=== PATIENT | male | born 1960 | race Caucasian/White ===

== ENCOUNTER 2022-12-16 08:47 | Emergency (ER) | payer BC ==
--- NOTE | 2022-12-16 09:31 | ED ---
Extremity Problem HPI - General Chief complaint: Recheck/Abnormal Lab/Rx Stated complaint: PO Hip surgery bleeding Time Seen by Provider: 12/16/22 09:05 Source: patient, RN notes reviewed Mode of arrival: ambulatory Limitations: no limitations - History of Present Illness Initial comments: This is a 62-year-old male who presents to the emergency department for bleeding from his postop incision. Patient had a total right hip replacement on 11/[address] Hay at [facility] in [place]. States that he had his yefri out a few days ago, and the wound has been draining blood and discharge since. Denies any notable pain with this. Also denies any fevers or chills. He is not taking any blood thinners. Denies any fevers, chills, sore throat, cough, dyspnea, chest pain, palpitations, abdominal pain, nausea, vomiting, diarrhea, back pain, or headaches. - Related Data Home Medications Medication Instructions Recorded Confirmed Aspirin EC [Ecotrin Low Dose] 81 mg PO BID 12/16/22 12/16/22 Atenolol/Chlorthalidone 1 tab PO DAILY 12/16/22 12/16/22 [Atenolol/Chlorthalidone 50-25] Citalopram Hydrobromide [CeleXA] 40 mg PO DAILY 12/16/22 12/16/22 Docusate Sodium [Dok] 100 mg PO BID 12/16/22 12/16/22 Fenofibrate [Lofibra] 160 mg PO DAILY 12/16/22 12/16/22 HYDROcodone/APAP 10-325MG [[facility] 1 tab PO Q6HR PRN 12/16/22 12/16/22 10-325] Levothyroxine Sodium [Synthroid] 112 mcg PO DAILY 12/16/22 12/16/22 Meloxicam [Mobic] 15 mg PO DAILY 12/16/22 12/16/22 Simvastatin [Zocor] 20 mg PO DAILY 12/16/22 12/16/22 metFORMIN HCL [Glucophage] 1,000 mg PO BID 12/16/22 12/16/22 traMADol HCL 50 mg PO Q6H PRN 12/16/22 12/16/22 Allergies Allergy/AdvReac Type Severity Reaction Status Date / Time Penicillins AdvReac Swelling Verified 08/24/23 08:59 Review of Systems ROS Statement: Those systems with pertinent positive or pertinent negative responses have been documented in the HPI. ROS Other: All systems not noted in ROS Statement are negative. Past Medical History Past Medical History: Diabetes Mellitus, Hyperlipidemia, Hypertension, Thyroid Disorder History of Any Multi-Drug Resistant Organisms: None Reported Past Surgical History: Joint Replacement, Orthopedic Surgery Past Psychological History: No Psychological Hx Reported Smoking Status: Current every day smoker Past Alcohol Use History: None Reported Past Drug Use History: None Reported General Exam Limitations: no limitations General appearance: alert, in no apparent distress Head exam: Present: atraumatic, normocephalic, normal inspection Respiratory exam: Present: normal lung sounds bilaterally. Absent: respiratory distress, wheezes, rales, rhonchi, stridor Cardiovascular Exam: Present: regular rate, normal rhythm, normal heart sounds. Absent: systolic murmur, diastolic murmur, rubs, gallop, clicks Extremities exam: Present: other (Incision over the right greater trochanter with surrounding erythema, induration, and active purulent drainage.) Neurological exam: Present: alert, oriented X3, CN II-XII intact Psychiatric exam: Present: normal affect, normal mood Course Vital Signs 12/16/22 12/16/22 08:59 13:47 Temperature 98 F Pulse Rate 79 60 Respiratory 16 18 Rate Blood Pressure 107/63 121/74 O2 Sat by Pulse 98 95 Oximetry Medical Decision Making - Medical Decision Making This is a 62-year-old male who presents to the emergency department for bleeding and drainage from his postoperative hip incision. Was pt. sent in by a medical professional or institution? @ -No Did you speak to anyone other than the patient for history? @ -No Did you review nursing and triage notes? @ -Yes, and I agree, it is accurate with regards to the patient's symptoms. Were old charts reviewed? @ -No Differential Diagnosis? @ -Differential Incisional Drainage: Cellulitis, Abscess, Injury, this is not meant to be an all-inclusive list. EKG interpreted by me (3pts min.)? @ -Not obtained X-rays interpreted by me (1pt min.)? @ -X-ray of the right hip obtained. My interpretation identifies intact hardware. CT interpreted by me (1pt min.)? @ -Not obtained U/S interpreted by me (1pt. min.)? @ -Not obtained What testing was considered but not performed? (CT, X-rays, U/S, labs)? Why? @ -None What meds were considered but not given? Why? @ -None Did you discuss the management of the patient with other professionals? @ -Yes, Dr. Arce, who accepts the patient for admission. Did you reconcile home meds? @ -Yes Was smoking cessation discussed for >3mins.? @ -No Was critical care preformed (if so, how long)? @ -No Were there social determinants of health that impacted care today? How? (Homelessness, low income, unemployed, alcoholism, drug addiction, transportatio n, low edu. Level, literacy, decrease access to med. care, prison, rehab)? @ -No Was there de-escalation of care discussed even if they declined? (Discuss DNR or withdrawal of care, Hospice)? @ -No What co-morbidities impacted this encounter? (DM, HTN, Smoking, COPD, CAD, Cancer, CVA, Hep., AIDS, mental health diagnosis, sleep apnea, morbid obesity)? @ -DM Was patient admitted / discharged? @ -Admitted. Physical examination is concerning for infection, as there is purulent drainage coming from the incision with surrounding erythema, induration, and tenderness. There also appears to be a foul odor associated with this. XR of the right hip obtained revealing no acute process. Lab work reveals no leukocytosis or elevated lactic acid, however he does have markedly elevated inflammatory markers with an ESR 79 and CRP of 28.6. Given his recent surgery with potential infection over a joint, patient admitted to medicine for IV antibiotics. He was started on vancomycin and cefepime. Blood and wound cultures obtained. Consult placed for infectious disease. Undiagnosed new problem with uncertain prognosis? @ -None Drug Therapy requiring intensive monitoring for toxicity (Heparin, Nitro, Insulin, Cardizem)? @ -None Were any procedures done? @ -None Diagnosis/symptom? @ -Right hip cellulitis, s/p total right hip arthroplasty Acute, or Chronic, or Acute on Chronic? @ -Acute Uncomplicated (without systemic symptoms) or Complicated (systemic symptoms)? @ -Uncomplicated Side effects of treatment? @ -None Exacerbation, Progression, or Severe Exacerbation] @ -Not applicable Poses a threat to life or bodily function? @ -Yes This case was discussed in detail with the attending ED physician, Dr. Escobedo. Presentation, findings, and treatment plan discussed in detail as well. - Lab Data Result diagrams: 12/16/22 09:12/16/22 09: Lab Results 12/16/22 12/16/22 12/16/22 Range/Units 09:23 09: 09:23 WBC 4.7 (3.8-10.6) k/uL RBC 3.88 L (4.30-5.90) m/uL Hgb 12.0 L (13.0-17.5) gm/dL Hct 35.4 L (39.0-53.0) % MCV 91.2 (80.0-100.0) fL MCH 31.0 (25.0-35.0) pg MCHC 33.9 (31.0-37.0) g/dL RDW 13.5 (11.5-15.5) % Plt Count 279 (150-450) k/uL MPV 8.7 Neutrophils % (Manual) 57 % Band Neuts % (Manual) 9 % Lymphocytes % (Manual) 12 % Monocytes % (Manual) 21 % Eosinophils % (Manual) 1 % Neutrophils # (Manual) 3.10 (1.3-7.7) k/uL Lymphocytes # (Manual) 0.56 L (1.0-4.8) k/uL Monocytes # (Manual) 0.99 (0-1.0) k/uL Eosinophils # (Manual) 0.05 (0-0.7) k/uL Nucleated RBCs 0 (0-0) /100 WBC Manual Slide Review Performed ESR 79 H (0-15) mm/hr Sodium 129 L (137-145) mmol/L Potassium 3.7 (3.5-5.1) mmol/L Chloride 94 L (98-107) mmol/L Carbon Dioxide 22 (22-30) mmol/L Anion Gap 13 mmol/L BUN 18 (9-20) mg/dL Creatinine 0.97 (0.66-1.25) mg/dL Est GFR (CKD-EPI)AfAm >90 (>60 ml/min/1.73 sqM) Est GFR (CKD-EPI)NonAf 83 (>60 ml/min/1.73 sqM) Glucose 151 H (74-99) mg/dL Plasma Lactic Acid Wil 1.2 (0.7-2.0) mmol/L Calcium 8.9 (8.4-10.2) mg/dL Total Bilirubin 1.8 H (0.2-1.3) mg/dL AST 51 (17-59) U/L ALT 46 (4-49) U/L Alkaline Phosphatase 72 (38-126) U/L C-Reactive Protein 28.6 H (<1.0) mg/dL Total Protein 6.4 (6.3-8.2) g/dL Albumin 3.7 (3.5-5.0) g/dL - Radiology Data Radiology results: report reviewed, image reviewed Disposition Clinical Impression: Cellulitis of right hip, S/P total right hip arthroplasty Disposition: ADMITTED IP TO THIS HOSP
[2022-12-16 10:11] LABS: HCT 35.4 % (39.0-53.0); MCHC 33.9 g/dL (31.0-37.0); MCV 91.2 fL (80.0-100.0); Mean Platelet Volume 8.7; Platelet Count 279 k/uL (150-450); RBC 3.88 m/uL (4.30-5.90); RDW 13.5 % (11.5-15.5); WBC 4.7 k/uL (3.8-10.6)
[2022-12-16 10:15] LABS: ALT 46 U/L (4-49); AST 51 U/L (17-59); African American GFR (CKD) >90 (>60 ml/min/1.73 sqM); Albumin 3.7 g/dL (3.5-5.0); Alkaline Phosphatase 72 U/L (38-126); Anion Gap 13 mmol/L; Blood Urea Nitrogen 18 mg/dL (9-20); Calcium 8.9 mg/dL (8.4-10.2); Carbon Dioxide 22 mmol/L (22-30); Chloride 94 mmol/L (98-107); Glucose 151 mg/dL (74-99); Non-African American GFR(CKD) 83 (>60 ml/min/1.73 sqM); Potassium 3.7 mmol/L (3.5-5.1); Sodium 129 mmol/L (137-145); Total Bilirubin 1.8 mg/dL (0.2-1.3); Total Protein 6.4 g/dL (6.3-8.2)
--- NOTE | 2022-12-16 10:34 | XR ---
EXAMINATION TYPE: XR Hip Complete RT DATE OF EXAM: 12/16/2022 CLINICAL HISTORY: Left hip pain and osteoarthritis. TECHNIQUE: Single AP portable view of right hip is obtained immediately postoperatively. COMPARISON: None. FINDINGS: Metallic hardware from right hip arthroplasty is seen and appears satisfactory in alignment and position. There is evidence of recent surgery with subcutaneous gas noted laterally. IMPRESSION: Metallic hardware from right hip arthroplasty is satisfactory in position.
[2022-12-16 10:44] LABS: Band Neutrophils % 9 %; Eosinophils # (M) 0.05 k/uL (0-0.7); Lymphocytes # (M) 0.56 k/uL (1.0-4.8); Monocytes # (M) 0.99 k/uL (0-1.0); Neutrophils % (M) 57 %; Nucleated Red Blood Cells 0 /100 WBC (0-0); Total Cells Counted 100
[2022-12-16 10:55] LABS: C Reactive Protein 28.6 mg/dL (<1.0)
[2022-12-16 11:02] LABS: Erythrocyte Sedimentation Rate 79 mm/hr (0-15)
[2022-12-16] MEDS ORDERED: IBUPROFEN 400 MG TAB PO PRN (11:36)
[2022-12-16] MEDS ORDERED: MORPHINE SULFATE 4 MG/ML SYRINGE IV PRN (11:36)
[2022-12-16] MEDS ORDERED: ACETAMINOPHEN TAB 325 MG TAB PO PRN (11:36)
[2022-12-16] MEDS ORDERED: KETOROLAC 15 MG/ML 1 ML VIAL IVP PRN (11:36)
[2022-12-16] MEDS ORDERED: HYDROcodone/APAP 5-325MG 1 EACH TAB PO PRN (11:36)
[2022-12-16] MEDS ORDERED: ONDANSETRON 4 MG/2 ML VIAL IVP PRN (11:36)
[2022-12-16] MEDS ORDERED: NALOXONE 0.4 MG/ML 1 ML VIAL IV PRN (11:36)
[2022-12-16] MEDS ORDERED: VANCOMYCIN IV PER PHARMACY 1 EACH MISC MISCELLANE PRN (11:39)
[2022-12-16] MEDS ORDERED: CEFEPIME 2 GM in SODIUM CHLORIDE 0.9% 100 ML IVPB STA (11:39)
[2022-12-16] MEDS ORDERED: VANCOMYCIN 1,750 MG in SODIUM CHLORIDE 0.9% 500 ML 500 ML IVPB ONE (12:30)
[2022-12-16] MEDS: metFORMIN 500 MG TAB PO SCH (21:41)
[2022-12-16] MEDS: ASPIRIN 81 MG PO SCH (21:41)
[2022-12-16] MEDS: DOCUSATE 100 MG CAP PO SCH (21:41)
--- NOTE | 2022-12-16 21:43 | P.CONS ---
History of Present Illness - Reason for Consult Consult date: 12/16/22 - History of Present Illness Patient is a 62-year-old male with a past medical his significant for diabetes mellitus hypertension hyperlipidemia and history of thyroid disorder current everyday smoker patient recently did have a right hip replacement done on 11/24/2022 with at outpatient surgical center patient was subsequently discharged in stable condition patient did have removal of his stitches on 12/08/2022 and the patient mention he started having drainage from his incision site patient did call his orthopedic surgeon however he was told that it would run its course patient now presenting to the [facility] ER concerning for increasing drainage from his right hip site pain has been getting worse for the last 2 to 3 days patient denies high-grade fever or any chills and did not have any fever on presentation to the hospital patient denies having any chest pain shortness of breath or cough no nausea vomiting no abdominal pain or diarrhea he did have some swelling and pain to the right hip area 4-5 strength and or deviation patient did have a normal white count 4.7 creatinine 0.97 CRP was 28.6 sed rate is 79 blood cultures have been obtained which are currently pending I was able to obtain deep culture and he was noticed to have a significantly deep wound Past Medical History Past Medical History: Diabetes Mellitus, Hyperlipidemia, Hypertension, Thyroid Disorder History of Any Multi-Drug Resistant Organisms: None Reported Past Surgical History: Joint Replacement, Orthopedic Surgery Past Psychological History: No Psychological Hx Reported Smoking Status: Current every day smoker Past Alcohol Use History: None Reported Past Drug Use History: None Reported Medications and Allergies Home Medications Medication Instructions Recorded Confirmed Type Aspirin EC [Ecotrin Low Dose] 81 mg PO BID 12/16/22 12/16/22 History Atenolol/Chlorthalidone 1 tab PO DAILY 12/16/22 12/16/22 History [Atenolol/Chlorthalidone 50-25] Citalopram Hydrobromide [CeleXA] 40 mg PO DAILY 12/16/22 12/16/22 History Docusate Sodium [Dok] 100 mg PO BID 12/16/22 12/16/22 History Fenofibrate [Lofibra] 160 mg PO DAILY 12/16/22 12/16/22 History HYDROcodone/APAP 10-325MG [[place] 1 tab PO Q6HR PRN 12/16/22 12/16/22 History 10-325] Levothyroxine Sodium [Synthroid] 112 mcg PO DAILY 12/16/22 12/16/22 History Meloxicam [Mobic] 15 mg PO DAILY 12/16/22 12/16/22 History Simvastatin [Zocor] 20 mg PO DAILY 12/16/22 12/16/22 History metFORMIN HCL [Glucophage] 1,000 mg PO BID 12/16/22 12/16/22 History traMADol HCL 50 mg PO Q6H PRN 12/16/22 12/16/22 History Allergies Allergy/AdvReac Type Severity Reaction Status Date / Time Penicillins AdvReac Swelling Verified 12/16/22 08:59 Physical Exam Vitals: Vital Signs Temp Pulse Resp BP Pulse Ox 12/16/22 08:59 98 F 79 16 107/63 98 Intake and Output 12/15/22 12/16/22 12/16/22 22:59 06:59 14:59 Other: Weight 88.451 kg Results CBC & Chem 7: 12/16/22 09:23 12/16/22 09:23 Labs: Abnormal Lab Results - Last 24 Hours (Table) 12/16/22 12/16/22 Range/Units 09: 09:23 RBC 3.88 L (4.30-5.90) m/uL Hgb 12.0 L (13.0-17.5) gm/dL Hct 35.4 L (39.0-53.0) % Lymphocytes # (Manual) 0.56 L (1.0-4.8) k/uL ESR 79 H (0-15) mm/hr Sodium 129 L (137-145) mmol/L Chloride 94 L (98-107) mmol/L Glucose 151 H (74-99) mg/dL Total Bilirubin 1.8 H (0.2-1.3) mg/dL C-Reactive Protein 28.6 H (<1.0) mg/dL Assessment and Plan Plan: 1patient presented hospital with drainage from his right hip surgical site in this patient who recently did have a right hip replacement on 11/24/2022 and started having drainage after removal of his stitches on 12/08/2022 patient did have a deep wound concerning for possible deeper infection however the patient did not have any fever or elevated white count the likely organism need to cover to be the gram-positive skin queta such as strep and Staph aureus 2-patient benefit from orthopedics evaluation for I&D of this area for deep culture and to see the extent of this infection to make sure is not tracking down to the artificial hip 3-patient did have a penicillin allergy therapy limit the number of antibiotics safe to use 4-vancomycin pharmacy to dose with a target trough of 15 while watching kidney function and Vanco trough closely. We will follow on clinical condition and cultures to further adjust medication if needed Thank you for this consultation we will follow the patient along with you Dictation was produced using [employer] dictation software. please excuse any grammatical, word or spelling errors. Time with Patient: Greater than 30
[2022-12-17 00:06] LABS: Glucose,Whole Blood 118 mg/dL (70-110)
[2022-12-17] MEDS: VANCOMYCIN 1,500 MG in SODIUM CHLORIDE 0.9% 500 ML 500 ML IVPB SCH ×2 (02:16→13:30)
[2022-12-17] MEDS ORDERED: LEVOTHYROXINE 112 MCG TAB PO SCH (06:30)
[2022-12-17] MEDS ORDERED: DEXTROSE 50% SYRINGE 50 ML IVP PRN ×2 (08:10)
--- NOTE | 2022-12-17 08:23 | P.HPIM ---
History of Present Illness H&P Date: 12/17/22 Chief Complaint: Drainage of right hip The patient is a 62-year-old white male with diabetes hypertension hyperlipidemia who had right hip repair about 3 weeks ago. [place] were taken out about 10 days ago and since then he's had significant redness and erythema. He is here for significant cellulitis. Infectious diseases been consulted and we will ask orthopedic to see. Low-grade fever is noted. Pain is nominal however. No sniffing nausea, vomiting or diarrhea. Review of Systems Constitutional: Denies chills, Denies fever Eyes: denies blurred vision, denies pain Ears, nose, mouth and throat: Denies headache, Denies sore throat Cardiovascular: Denies chest pain, Denies shortness of breath Gastrointestinal: Denies abdominal pain, Denies diarrhea, Denies nausea, Denies vomiting Musculoskeletal: Denies myalgias Past Medical History Past Medical History: Diabetes Mellitus, Hyperlipidemia, Hypertension, Thyroid Disorder History of Any Multi-Drug Resistant Organisms: None Reported Past Surgical History: Joint Replacement, Orthopedic Surgery Past Psychological History: No Psychological Hx Reported Smoking Status: Current every day smoker Past Alcohol Use History: None Reported Past Drug Use History: None Reported Medications and Allergies Home Medications Medication Instructions Recorded Confirmed Type Aspirin EC [Ecotrin Low Dose] 81 mg PO BID 12/16/22 12/16/22 History Atenolol/Chlorthalidone 1 tab PO DAILY 12/16/22 12/16/22 History [Atenolol/Chlorthalidone 50-25] Citalopram Hydrobromide [CeleXA] 40 mg PO DAILY 12/16/22 12/16/22 History Docusate Sodium [Dok] 100 mg PO BID 12/16/22 12/16/22 History Fenofibrate [Lofibra] 160 mg PO DAILY 12/16/22 12/16/22 History HYDROcodone/APAP 10-325MG [[place] 1 tab PO Q6HR PRN 12/16/22 12/16/22 History 10-325] Levothyroxine Sodium [Synthroid] 112 mcg PO DAILY 12/16/22 12/16/22 History Meloxicam [Mobic] 15 mg PO DAILY 12/16/22 12/16/22 History Simvastatin [Zocor] 20 mg PO DAILY 12/16/22 12/16/22 History metFORMIN HCL [Glucophage] 1,000 mg PO BID 12/16/22 12/16/22 History traMADol HCL 50 mg PO Q6H PRN 12/16/22 12/16/22 History Allergies Allergy/AdvReac Type Severity Reaction Status Date / Time Penicillins AdvReac Swelling Verified 12/16/22 08:59 Physical Exam Vitals: Vital Signs Temp Pulse Resp BP Pulse Ox 12/17/22 06:12 71 18 119/78 96 12/17/22 00:38 76 18 124/74 99 12/16/22 21:37 99.4 F 70 18 118/75 97 12/16/22 19:20 99.0 F 12/16/22 18:44 101.7 F H 80 20 149/74 98 12/16/22 13:47 60 18 121/74 95 12/16/22 08:59 98 F 79 16 107/63 98 - Constitutional General appearance: cooperative, no acute distress - EENT Eyes: EOMI - Neck Neck: no lymphadenopathy - Respiratory Respiratory: bilateral: CTA - Cardiovascular Rhythm: regular Heart sounds: normal: S1, S2 Abnormal Heart Sounds: no S3 Gallop - Gastrointestinal General gastrointestinal: soft, no tenderness - Integumentary Integumentary: cellulitis - Neurologic Neurologic: CNII-XII intact - Psychiatric Psychiatric: A&O x's 3 Results CBC & Chem 7: 12/16/22 09:23 12/16/22 09:23 Labs: Abnormal Lab Results - Last 24 Hours (Table) 12/16/22 12/16/22 12/17/22 Range/Units 09: 09:23 00:04 RBC 3.88 L (4.30-5.90) m/uL Hgb 12.0 L (13.0-17.5) gm/dL Hct 35.4 L (39.0-53.0) % Lymphocytes # (Manual) 0.56 L (1.0-4.8) k/uL ESR 79 H (0-15) mm/hr Sodium 129 L (137-145) mmol/L Chloride 94 L (98-107) mmol/L Glucose 151 H (74-99) mg/dL POC Glucose (mg/dL) 118 H (70-110) mg/dL Total Bilirubin 1.8 H (0.2-1.3) mg/dL C-Reactive Protein 28.6 H (<1.0) mg/dL Microbiology - Last 24 Hours (Table) 12/16/22 09:23 Gram Stain - Preliminary Leg - Right Assessment and Plan (1) Diabetes Current Visit: Yes Status: Acute Code(s): E11.9 - TYPE 2 DIABETES MELLITUS WITHOUT COMPLICATIONS SNOMED Code(s): 58828186 (2) Hypertension Current Visit: Yes Status: Acute Code(s): I10 - ESSENTIAL (PRIMARY) HYPERTENSION SNOMED Code(s): 51225263 (3) Hyperlipidemia Current Visit: Yes Status: Acute Code(s): E78.5 - HYPERLIPIDEMIA, UNSPECIFIED SNOMED Code(s): 36979818 (4) Hypothyroidism Current Visit: Yes Status: Acute Code(s): E03.9 - HYPOTHYROIDISM, UNSPECIFIED SNOMED Code(s): 82571851 (5) Cellulitis of right hip Current Visit: Yes Status: Acute Code(s): L03.115 - CELLULITIS OF RIGHT LOWER LIMB SNOMED Code(s): 54430996107650615 (6) S/P total right hip arthroplasty Current Visit: Yes Status: Acute Code(s): Z96.641 - PRESENCE OF RIGHT ARTIFICIAL HIP JOINT SNOMED Code(s): 390374971685 Plan: Empiric antibiotic treatment. Appreciate infectious disease input. Place on sliding scale. Reconcile medications. Pain control as necessary. We will ask Dr. Jefferson to see.
[2022-12-17] MEDS ORDERED: FENOFIBRATE 160 MG TAB PO SCH (09:00)
[2022-12-17] MEDS ORDERED: CHLORTHALIDONE 25 MG TAB PO SCH (09:00)
[2022-12-17] MEDS ORDERED: MELOXICAM 7.5 MG TAB PO SCH (09:00)
[2022-12-17] MEDS ORDERED: ATORVASTATIN 10 MG TAB PO SCH (09:00)
[2022-12-17] MEDS ORDERED: atenoloL 50 MG TAB PO SCH (09:00)
[2022-12-17] MEDS ORDERED: NON FORMULARY DRUG (Atenolol/Chlorthalidone [Atenolol/Chlorthalidone 50-25] 1 EACH Tablet) PO SCH (09:00)
[2022-12-17] MEDS ORDERED: CITALOPRAM HYDROBROMIDE 20 MG TAB PO SCH (09:00)
[2022-12-17 10:01] VITALS: RESP 19
[2022-12-17] MEDS: DOCUSATE 100 MG CAP PO SCH (10:01)
[2022-12-17] MEDS: metFORMIN 500 MG TAB PO SCH (10:01)
[2022-12-17] MEDS: ASPIRIN 81 MG PO SCH (10:03)
--- NOTE | 2022-12-17 12:25 | P.CNOR ---
History of Present Illness - HPI Consult date: 12/17/22 Requesting physician: Nehemiah Arce Consult reason: other (Right hip cellulitis) History of present illness: History of Presenting Illness Patient is a pleasant 59-year-old male who presents to the ER with drainage of the right hip. Patient states he recently had repair of his right hip on 11/25/[address] Hay from [facility]. He states his yefri were removed approximately 10 days ago. He states he reached out to surgeon to i nform him of incision and drainage on 12/14/2022. No recommendations were provided. Patient does have a medical history of Diabetes Mellitus, Hyperlipidemia, and Hypertension. Patient denies any other orthopedic history. Patient states he felt he was progressing well until this incident. Patient states he is ambulatory independently without any difficulty. Patient is seen and examined in the ER. Patient is resting currently on stretcher. Patient reports mild pain of the right hip that is managed on current regimen. Surgical incision of the right hip is open with a significant amount of purulent drainage. He states he has been ambulatory independently. He denies any numbness or tingling to left lower extremity. Patient is currently on IV vancomycin. Patient VVS, remains afebrile. Review of Systems Pertinent positives and negatives as discussed in HPI, a complete review of systems was performed and all other systems are negative. Physical Examination Inspection: Incision of the right hip is open with significant amount of purulent drainage. Erythema and edema present surrounding the surgical site. Sensation: Sensation is equal, symmetric, bilaterally intact throughout the upper and lower extremities Palpation: Nontender to palpation throughout bilateral upper and left lower extremities and throughout spine exam. Tender to palpation of the right hip. Range of motion: Patient does have full range of motion bilateral upper and lower extremities on exam Motor: 5/5 in all major motor groups in the bilateral upper and lower extremities Special tests: Negative Homans bilaterally. Negative [place] bilaterally. Negative clonus bilaterally. Neurovascular: Radial pulse intact, 2+ bilaterally. Cap refill under 3 seconds in digits upper extremities. Assessment and Plan Recent right hip replacement Dehiscence of surgical incision of the right hip Right hip cellulitis Recommend transfer to facility of operating surgeon, Dr. Hay Continue with IV antibiotics Continue with pain management Change dressing frequently to maintain clean and dry. I reviewed and discussed this case with my attending Dr. Kaur, whom has reviewed this chart and films and is in agreement with assessment and plan of care as outlined above. I have personally seen and examined the patient, performed the documentation and the assessment and plan as written. Number of minutes spent on the visit: 20m Past Medical History Past Medical History: Diabetes Mellitus, Hyperlipidemia, Hypertension, Thyroid Disorder History of Any Multi-Drug Resistant Organisms: None Reported Past Surgical History: Joint Replacement, Orthopedic Surgery Past Psychological History: No Psychological Hx Reported Smoking Status: Current every day smoker Past Alcohol Use History: None Reported Past Drug Use History: None Reported Medications and Allergies Home Medications Medication Instructions Recorded Confirmed Type Aspirin EC [Ecotrin Low Dose] 81 mg PO BID 12/16/22 12/16/22 History Atenolol/Chlorthalidone 1 tab PO DAILY 12/16/22 12/16/22 History [Atenolol/Chlorthalidone 50-25] Citalopram Hydrobromide [CeleXA] 40 mg PO DAILY 12/16/22 12/16/22 History Docusate Sodium [Dok] 100 mg PO BID 12/16/22 12/16/22 History Fenofibrate [Lofibra] 160 mg PO DAILY 12/16/22 12/16/22 History HYDROcodone/APAP 10-325MG [[place] 1 tab PO Q6HR PRN 12/16/22 12/16/22 History 10-325] Levothyroxine Sodium [Synthroid] 112 mcg PO DAILY 12/16/22 12/16/22 History Meloxicam [Mobic] 15 mg PO DAILY 12/16/22 12/16/22 History Simvastatin [Zocor] 20 mg PO DAILY 12/16/22 12/16/22 History metFORMIN HCL [Glucophage] 1,000 mg PO BID 12/16/22 12/16/22 History traMADol HCL 50 mg PO Q6H PRN 12/16/22 12/16/22 History Allergies Allergy/AdvReac Type Severity Reaction Status Date / Time Penicillins AdvReac Swelling Verified 12/16/22 08:59 Results - Labs Labs: Abnormal Lab Results - Last 24 Hours (Table) 12/17/22 Range/Units 00:04 POC Glucose (mg/dL) 118 H (70-110) mg/dL Microbiology - Last 24 Hours (Table) 12/16/22 14:15 Gram Stain - Preliminary Hip - Right 12/16/22 09:23 Gram Stain - Preliminary Leg - Right Wound Culture - Preliminary Presumptive Staph aureus H & H 12/16/22 Range/Units 09:23 Hgb 12.0 L (13.0-17.5) gm/dL Hct 35.4 L (39.0-53.0) % Result Diagrams: 12/16/22 09:23 12/16/22 09:23
[2022-12-17 13:24] LABS: African American GFR (CKD) >90 (>60 ml/min/1.73 sqM); Non-African American GFR(CKD) >90 (>60 ml/min/1.73 sqM)
--- NOTE | 2022-12-17 16:19 | P.DS ---
Providers Date of admission: 12/16/22 11:37 Attending physician: Nehemiah Arce Consults: 12/16/22 11:36 Consult Physician Urgent Consulting Provider: Ric Rushing Consult Reason/Comments: Cellulitis right hip, s/p arthroplasty Do you want consulting provider notified?: Yes 12/17/22 08:19 Consult Physician Routine Consulting Provider: Justin Jefferson Consult Reason/Comments: cellulitis/abscess of right hip. Outside repair Do you want consulting provider notified?: Yes Primary care physician: Nehemiah Arce - Discharge Diagnosis(es) (1) Diabetes Current Visit: Yes Status: Acute (2) Hypertension Current Visit: Yes Status: Acute (3) Hyperlipidemia Current Visit: Yes Status: Acute (4) Hypothyroidism Current Visit: Yes Status: Acute (5) Cellulitis of right hip Current Visit: Yes Status: Acute (6) S/P total right hip arthroplasty Current Visit: Yes Status: Acute Hospital Course: This is discharge summary 62-year-old white male essentially admitted for postoperative hip infection after having to prepare the first week of November. He had suture removal and follow-up appropriately but since then has had worsening wound dehiscence and now abscess drainage. He is admitted for appropriate antibody treatment but after appropriate evaluation from orthopedics he is determined that he should be transferred to the original surgeon, Guanaco Hay. That office has been notified and has accepted him to get treated at [facility]. The patient will be transferred appropriately for continued treatment and incision and drainage of the postoperative wound infection. Infectious disease was consulted locally and placed on vancomycin which will be continued until appropriate management is instituted. Patient Condition at Discharge: Stable Plan - Discharge Summary New Discharge Prescriptions: New RX: Vancomycin 1,500 mg IVPB Q12H each RX: Acetaminophen Tab [Tylenol] 650 mg PO Q6HR PRN tab PRN Reason: Mild Pain Or Fever > 100.5 Continue RX: Simvastatin [Zocor] 20 mg PO DAILY RX: Meloxicam [Mobic] 15 mg PO DAILY RX: Levothyroxine Sodium [Synthroid] 112 mcg PO DAILY RX: Docusate Sodium [Dok] 100 mg PO BID RX: Aspirin EC [Ecotrin Low Dose] 81 mg PO BID RX: Citalopram Hydrobromide [CeleXA] 40 mg PO DAILY RX: traMADol HCL 50 mg PO Q6H PRN PRN Reason: Pain RX: metFORMIN HCL [Glucophage] 1,000 mg PO BID RX: HYDROcodone/APAP 10-325MG [Lockhart 10-325] 1 tab PO Q6HR PRN PRN Reason: Pain RX: Fenofibrate [Lofibra] 160 mg PO DAILY RX: Atenolol/Chlorthalidone [Atenolol/Chlorthalidone 50-25] 1 tab PO DAILY Discharge Medication List RX: Aspirin EC [Ecotrin Low Dose] 81 mg PO BID 12/16/22 [History] RX: Atenolol/Chlorthalidone [Atenolol/Chlorthalidone 50-25] 1 tab PO DAILY 12/16/22 [History] RX: Citalopram Hydrobromide [CeleXA] 40 mg PO DAILY 12/16/22 [History] RX: Docusate Sodium [Dok] 100 mg PO BID 12/16/22 [History] RX: Fenofibrate [Lofibra] 160 mg PO DAILY 12/16/22 [History] RX: HYDROcodone/APAP 10-325MG [Lockhart 10-325] 1 tab PO Q6HR PRN 12/16/22 [History] RX: Levothyroxine Sodium [Synthroid] 112 mcg PO DAILY 12/16/22 [History] RX: Meloxicam [Mobic] 15 mg PO DAILY 12/16/22 [History] RX: Simvastatin [Zocor] 20 mg PO DAILY 12/16/22 [History] RX: metFORMIN HCL [Glucophage] 1,000 mg PO BID 12/16/22 [History] RX: traMADol HCL 50 mg PO Q6H PRN 12/16/22 [History] RX: Acetaminophen Tab [Tylenol] 650 mg PO Q6HR PRN tab 12/17/22 [Rx] RX: Vancomycin 1,500 mg IVPB Q12H each 12/17/22 [Rx] Follow up Appointment(s)/Referral(s): Guanaco Hay MD [REFERRING] - 1-2 Days Discharge Disposition: TRANSFER TO [facility]
[2022-12-17 17:28] VITALS: BP 139/93; PULSE 78; TEMP 97.6
== END 2022-12-17 18:30 | disposition other institution (70) ==
LOC: EC 08:47 → UNDOADMOB 11:37 → 4SSUR 11:37 → EC 12-17 18:30
DX: T81.31XA Disruption of external operation (surgical) wound, not elsewhere classified, initial encounter (principal); I10 Essential (primary) hypertension; E11.9 Type 2 diabetes mellitus without complications; E78.5 Hyperlipidemia, unspecified; E07.9 Disorder of thyroid, unspecified; F17.200 Nicotine dependence, unspecified, uncomplicated; Z79.1 Long term (current) use of non-steroidal anti-inflammatories (NSAID); Z79.82 Long term (current) use of aspirin; Z79.84 Long term (current) use of oral hypoglycemic drugs; Z79.890 Hormone replacement therapy; Z79.899 Other long term (current) drug therapy; Z88.0 Allergy status to penicillin; Z96.641 Presence of right artificial hip joint; Z20.822 Contact with and (suspected) exposure to COVID-19
CPT/HCPCS: 99285; 96365; 96367; 96366 ×5; 36415; 80053; 85652; 82565; 83605; 85025; 86140; 87040; 87070; 87205; 87077; 87186; 87635; 73502; J3370 ×2; J0692